=== PATIENT | female | born 1940 | race Two or more races ===

== ENCOUNTER 2023-07-10 19:42 | Inpatient (IN) | payer OTHER ==
[~2023-07-10] VITALS: Ht 152.4 cm; Wt 54.4 kg
--- NOTE | 2023-07-10 19:47 | NUR ---
SE RECIBE A PTE DE AMBULANCIA. PTE TRANSFER DE AGUILAR Y ACEPTADA POR DR. LU. PTE ALERTA Y ORIENTADA X3. PTE REFIERE SE PRATIK EL [place]ES Y FRACTURO CADERA. PTE CON VENOPUNCION EN BRAZO DERECHO Y CON BAIG BAJANDO A GRAVEDAD.
[2023-07-10] MEDS ORDERED: 0.9 % SODIUM CHLORIDE 1,000 ML IV STA (20:59)
[2023-07-10] MEDS ORDERED: MORPHINE SULFATE 2 MG/ML CARTRIDGE IV ONE (21:00)
[2023-07-10] MEDS ORDERED: MORPHINE SULFATE 4 MG/ML CARTRIDGE IV SCH (21:17)
[2023-07-10] MEDS ORDERED: FAMOTIDINE/PF 20 MG/2 ML VIAL IV SCH (21:17)
--- NOTE | 2023-07-10 21:26 | NUR ---
SE ORIENTA A PACIENTE SOBRE [place] MEDICO, REFIERE ENTENDER. SE ADMINISTRAN [facility] [place] ORDEN MEDICA. SE COORDINAN CHELSEY X. SE REALIZA EKG. PACIENTE CON SONDA URINARIA INSERTADA EN [facility].
[2023-07-10] MEDS ORDERED: ENALAPRILAT DIHYDRATE 1.25 MG/ML VIAL IV PRN (21:30)
[2023-07-10] MEDS ORDERED: VANCOMYCIN HCL 500 MG VIAL IV ONE (21:30)
[2023-07-10] MEDS ORDERED: ONDANSETRON HCL 4 MG in 0.9 % SODIUM CHLORIDE 50 ML IV PRN (21:30)
[2023-07-10] MEDS ORDERED: 0.9 % SODIUM CHLORIDE 1,000 ML IV SCH ×2 (21:30)
[2023-07-10 21:44] LABS: HEMATOCRIT 39.5 % (36.0-45.00); HEMOGLOBIN 13.5 g/dL (12.0-15.00); MEAN CELL VOLUME 95.8 fL (80.00-100.00); MEAN CORPUSCULAR HEMOGLOBIN 32.8 pg (27.00-32.0); MEAN CORPUSCULAR HGB CONC 34.2 g/dl (32.0-36.0); PH,URINE 7.5 (5.0-8.0); PLATELET COUNT 266 K/uL (150-450); RED BLOOD COUNT 4.13 M/uL (4.00-6.00); RED CELL DISTRIBUTION WIDTH 13.4 % (11.5-14.5); URINE APPEARANCE Cloudy; URINE BILIRRUBIN Negative (NEGATIVE); URINE COLOR Yellow; URINE GLUCOSE Negative (NEGATIVE); URINE LEUKOCYTE Small; URINE NITRATE Negative; URINE PROTEIN Trace (NEGATIVE)
[2023-07-10 21:47] LABS: URINE BACTERIA 41.5 uL (0.0-1933); URINE EPITHELIAL CELLS 1.5 uL (0.0-38.8); URINE RBC 42.2 uL (0.0-20.8); URINE WBC 43.3 uL (0.0-23.2)
[2023-07-10 21:53] LABS: URINE BLOOD TRACES
[2023-07-10 22:02] LABS: INR 0.98; PARTIAL THROMBOPLASTIN TIME 32.5 SECONDS (22.0-34.0); PROTHROMBIN TIME 10.3 SECONDS (9.0-11.5)
[2023-07-10 22:07] LABS: ALBUMIN 3.7 gm/dL (3.4-5.0); BILIRUBIN TOTAL 0.69 mg/dL (0.3-1.2); CALCIUM 9.4 mg/dL (8.5-10.1); CREATININE SERUM 0.53 mg/dL (0.55-1.02); GFR 110.17; GLOBULINA 4.1 G/DL (2.4-3.5); POTASSIUM 3.99 mEq/L (3.5-5.1); TOTAL PROTEIN 7.8 gm/dL (6.4-8.2)
[2023-07-10 22:31] LABS: ABG PH 7.464 (7.35-7.45); ABG PO2 79.5 mmHg (80-100); ABG pCO2 38.9 mmHg (35-45); BASE EXCESS 3.4 mmol/l; BICARBONATE 27.3 mmol/l (23-25); SaO2 96.5 %; Tco2 28.5 mmol/l; allen test SATISFACTORY; o2 21 %; puncture site RADIAL RIGHT
[2023-07-11] MEDS ORDERED: CHLORHEXIDINE GLUCONATE 120 ML BOTTLE TOP ONE (08:15)
[2023-07-11] MEDS ORDERED: FAMOTIDINE/PF 20 MG/2 ML VIAL IV SCH (09:00)
[2023-07-11] MEDS ORDERED: MULTIVIT-MIN/IRON FUM/FOLIC AC 1 TAB TABLET PO ONE (09:50)
[2023-07-11 09:59] LABS: ABG PO2 71.5 mmHg (80-100); ABG pCO2 43.1 mmHg (35-45); BASE EXCESS 1.1 mmol/l; BICARBONATE 26.2 mmol/l (23-25); SaO2 94.2 %; Tco2 27.5 mmol/l; allen test SATISFACTORY; o2 21 %; puncture site RADIAL RIGHT
[2023-07-12] MEDS ORDERED: VANCOMYCIN HCL 1,000 MG VIAL ONE ×2 (07:14→07:39)
[2023-07-12] MEDS ORDERED: TRANEXAMIC ACID 100MG/1ML (1000MG) AMPUL IV ONE (07:39)
[2023-07-12] MEDS ORDERED: POLYMYXIN B SULFATE 500,000 U VIAL ONE (07:39)
[2023-07-12] MEDS ORDERED: TRANEXAMIC ACID 1,000 MG in 0.9 % SODIUM CHLORIDE 100 ML IV ONE (08:45)
[2023-07-12] MEDS ORDERED: VANCOMYCIN HCL 1,000 MG VIAL IR ONE (08:45)
[2023-07-12] MEDS ORDERED: VANCOMYCIN HCL 1,000 MG in 0.9 % SODIUM CHLORIDE 250 ML IV ONE (08:45)
[2023-07-12] MEDS ORDERED: POLYMYXIN B SULFATE 500,000 U VIAL IR ONE (09:00)
[2023-07-12] MEDS ORDERED: TRAMADOL HCL 50 MG TABLET PO PRN (09:15)
[2023-07-12] MEDS ORDERED: SODIUM CHLORIDE 0.45 % 1,000 ML IV SCH (09:15)
[2023-07-12] MEDS ORDERED: MEPERIDINE HCL/PF 50 MG/ML VIAL IM PRN (09:15)
[2023-07-12] MEDS ORDERED: ONDANSETRON 4 MG TAB.RAPDIS PO PRN (09:15)
[2023-07-12] MEDS ORDERED: ONDANSETRON HCL 2 MG/ML VIAL IV PRN (09:15)
[2023-07-12] MEDS ORDERED: PROMETHAZINE HCL 50 MG/ML AMPUL IM PRN (09:15)
[2023-07-12] MEDS ORDERED: PANTOPRAZOLE SODIUM 40 MG TABLET.DR PO SCH (09:17)
[2023-07-12] MEDS ORDERED: ACETAMINOPHEN 325 MG TABLET PO SCH (13:00)
[2023-07-12] MEDS ORDERED: VANCOMYCIN HCL 500 MG VIAL IV SCH (21:00)
[2023-07-13 07:48] LABS: HEMATOCRIT 32.3 % (36.0-45.00); HEMOGLOBIN 11.1 g/dL (12.0-15.00); MEAN CELL VOLUME 96.1 fL (80.00-100.00); MEAN CORPUSCULAR HGB CONC 34.4 g/dl (32.0-36.0); PLATELET COUNT 183 K/uL (150-450); RED BLOOD COUNT 3.36 M/uL (4.00-6.00); RED CELL DISTRIBUTION WIDTH 13.3 % (11.5-14.5)
[2023-07-13] MEDS ORDERED: RIVAROXABAN 10 MG TAB PO SCH (09:00)
[2023-07-13] MEDS ORDERED: PREDNISONE 20 MG TABLET PO SCH (09:00)
[2023-07-13] MEDS ORDERED: FAMOtidine 20 MG TABLET PO SCH (21:00)
[2023-07-14 05:40] LABS: HEMATOCRIT 31.8 % (36.0-45.00); MEAN CELL VOLUME 97.3 fL (80.00-100.00); MEAN CORPUSCULAR HEMOGLOBIN 33.3 pg (27.00-32.0); MEAN CORPUSCULAR HGB CONC 34.2 g/dl (32.0-36.0); PLATELET COUNT 165 K/uL (150-450); RED BLOOD COUNT 3.27 M/uL (4.00-6.00)
[2023-07-14 05:56] LABS: HEMOGLOBIN 10.9 g/dL (12.0-15.00)
== END 2023-07-14 16:37 | disposition home or self-care (01) | DRG 522 ==
LOC: ER 19:42 → SURH 21:15
PROVIDERS: General Practice; Orthopaedic Surgery; ADMIT Internal Medicine; ATTEND Internal Medicine
PROC: 0QQ54ZZ Repair Left Acetabulum, Percutaneous Endoscopic Approach (ICD-10-PCS; 2023-07-12)
PROC: 0SRS0JZ Replacement of Left Hip Joint, Femoral Surface with Synthetic Substitute, Open Approach (ICD-10-PCS; principal; 2023-07-12 16:30)
DX: S72.002A Fracture of unspecified part of neck of left femur, initial encounter for closed fracture (principal); M17.11 Unilateral primary osteoarthritis, right knee

== ENCOUNTER 2023-09-29 14:59 | Outpatient (CLI) | payer OTHER | END 2023-09-29 15:04 | disposition home or self-care (01) | LOC: RAD 14:59 | PROVIDERS: ATTEND Orthopaedic Surgery | DX: M25.561 Pain in right knee (principal) ==

== ENCOUNTER 2023-10-05 12:33 | Inpatient (IN) | payer OTHER ==
[~2023-10-05] VITALS: Ht 121.9 cm; Wt 54.4 kg
[2023-10-05 12:47] LABS: HEMATOCRIT 36.9 % (36.0-45.00); HEMOGLOBIN 12.6 g/dL (12.0-15.00); MEAN CELL VOLUME 97.2 fL (80.00-100.00); MEAN CORPUSCULAR HEMOGLOBIN 33.2 pg (27.00-32.0); MEAN CORPUSCULAR HGB CONC 34.2 g/dl (32.0-36.0); PLATELET COUNT 199 K/uL (150-450); RED BLOOD COUNT 3.79 M/uL (4.00-6.00); RED CELL DISTRIBUTION WIDTH 13.5 % (11.5-14.5)
[2023-10-05 12:49] LABS: URINE APPEARANCE Turbid; URINE BILIRRUBIN Negative (NEGATIVE); URINE BLOOD Negative; URINE COLOR Yellow; URINE GLUCOSE Negative (NEGATIVE); URINE LEUKOCYTE Negative; URINE NITRATE Negative; URINE PROTEIN Negative (NEGATIVE); URINE UROBILINOGEN 0.2 E.U./dl
[2023-10-05 12:50] LABS: URINE BACTERIA 31.4 uL (0.0-1933); URINE RBC 5.3 uL (0.0-20.8)
[2023-10-05] MEDS ORDERED: LIPITOR20 MG PO (12:53)
[2023-10-05] MEDS ORDERED: TREXALL5 MG PO (12:53)
[2023-10-05] MEDS ORDERED: FOSAMAX70 MG PO (12:53)
[2023-10-05] MEDS ORDERED: XARELTO15 MG PO (12:54)
[2023-10-05] MEDS ORDERED: SINGULAIR10 MG PO (12:54)
[2023-10-05 13:06] LABS: INR 0.98; PARTIAL THROMBOPLASTIN TIME 35.2 SECONDS (22.0-34.0); PROTHROMBIN TIME 10.3 SECONDS (9.0-11.5)
[2023-10-05 13:09] LABS: COL EPI 54 SECONDS (82-175)
[2023-10-05 13:20] LABS: BILIRUBIN TOTAL 0.73 mg/dL (0.3-1.2); CALCIUM 9.5 mg/dL (8.5-10.1); CREATININE SERUM 0.54 mg/dL (0.55-1.02); GFR 107.82; GLOBULINA 3.3 G/DL (2.4-3.5); POTASSIUM 3.89 mEq/L (3.5-5.1); TOTAL PROTEIN 7.3 gm/dL (6.4-8.2)
[2023-10-11] MEDS ORDERED: CEFOXITIN SODIUM 2,000 MG VIAL IV ONE (08:45)
[2023-10-11] MEDS ORDERED: TRANEXAMIC ACID 100MG/1ML (1000MG) AMPUL IV ONE ×2 (09:00)
[2023-10-11] MEDS ORDERED: LIDOCAINE HCL 1%/EPINEPHRINE 20ML VIAL IJ ONE (09:00)
[2023-10-11] MEDS ORDERED: POVIDONE-IODINE 3 EA MED..SWAB TOP ONE (09:00)
[2023-10-11] MEDS ORDERED: ISOPROPYL ALCOHOL 30 ML OUNCE TOP ONE (09:00)
[2023-10-11] MEDS ORDERED: BUPIVACAINE HCL 30 ML VIAL IV ONE ×2 (09:00→09:30)
[2023-10-11] MEDS ORDERED: MORPHINE SULFATE 4 MG/ML VIAL IV ONE (09:00)
[2023-10-11] MEDS ORDERED: SODIUM CHLORIDE 0.45 % 1,000 ML IV SCH (11:30)
[2023-10-11] MEDS ORDERED: ONDANSETRON HCL 2 MG/ML VIAL IV PRN (11:30)
[2023-10-11] MEDS ORDERED: MEPERIDINE HCL/PF 50 MG/ML VIAL IM PRN (11:30)
[2023-10-11] MEDS ORDERED: ONDANSETRON 4 MG TAB.RAPDIS PO PRN (11:30)
[2023-10-11] MEDS ORDERED: PROMETHAZINE HCL 50 MG/ML AMPUL IM PRN (11:30)
[2023-10-11] MEDS ORDERED: TRAMADOL HCL 50 MG TABLET PO PRN (11:30)
[2023-10-11] MEDS ORDERED: PANTOPRAZOLE SODIUM 40 MG TABLET.DR PO SCH (12:00)
[2023-10-11] MEDS ORDERED: ACETAMINOPHEN 325 MG TABLET PO SCH (13:00)
[2023-10-11] MEDS ORDERED: MORPHINE SULFATE 4 MG/ML CARTRIDGE IV PRN (15:00)
[2023-10-11] MEDS ORDERED: ATORVASTATIN CALCIUM 20 MG TABLET PO SCH (17:00)
[2023-10-11] MEDS ORDERED: CEFAZOLIN SODIUM 1,000 MG VIAL IV SCH (17:00)
[2023-10-12 07:30] LABS: HEMATOCRIT 30.5 % (36.0-45.00); HEMOGLOBIN 10.6 g/dL (12.0-15.00); MEAN CELL VOLUME 96.1 fL (80.00-100.00); MEAN CORPUSCULAR HEMOGLOBIN 33.4 pg (27.00-32.0); MEAN CORPUSCULAR HGB CONC 34.8 g/dl (32.0-36.0); PLATELET COUNT 138 K/uL (150-450); RED BLOOD COUNT 3.17 M/uL (4.00-6.00); RED CELL DISTRIBUTION WIDTH 13.1 % (11.5-14.5)
[2023-10-12] MEDS ORDERED: RIVAROXABAN 10 MG TAB PO SCH (09:00)
[2023-10-13 07:09] LABS: HEMATOCRIT 27.1 % (36.0-45.00); HEMOGLOBIN 9.3 g/dL (12.0-15.00); MEAN CELL VOLUME 95.7 fL (80.00-100.00); MEAN CORPUSCULAR HEMOGLOBIN 32.7 pg (27.00-32.0); MEAN CORPUSCULAR HGB CONC 34.2 g/dl (32.0-36.0); RED BLOOD COUNT 2.83 M/uL (4.00-6.00); RED CELL DISTRIBUTION WIDTH 13.1 % (11.5-14.5)
[2023-10-13 07:17] LABS: PLATELET COUNT 119 K/uL (150-450)
[2023-10-13] MEDS ORDERED: SENNA/DOCUSATE SODIUM 1 TAB TABLET PO SCH (09:00)
== END 2023-10-13 18:01 | disposition home or self-care (01) | DRG 470 ==
LOC: OB/GYN 10-11 06:00 → O/R 10-11 06:00 → SURH 10-11 07:00 → O/R 10-11 10:53 → SURH 10-11 11:06 → OB/GYN 10-11 11:52 → SURH 10-11 15:11 → OB/GYN 10-13 18:01
PROVIDERS: ADMIT Orthopaedic Surgery; ATTEND Orthopaedic Surgery
PROC: 0JNL0ZZ Release Right Upper Leg Subcutaneous Tissue and Fascia, Open Approach (ICD-10-PCS; 2023-10-11)
PROC: 0SRC069 Replacement of Right Knee Joint with Oxidized Zirconium on Polyethylene Synthetic Substitute, Cemented, Open Approach (ICD-10-PCS; principal; 2023-10-11 07:00)
DX: M17.11 Unilateral primary osteoarthritis, right knee (principal); M21.061 Valgus deformity, not elsewhere classified, right knee; D64.9 Anemia, unspecified